=== PATIENT | female | born 1955 | race Two or more races ===

== ENCOUNTER 2024-01-03 12:14 | Emergency (ER) | payer MEDICAID, OTHER ==
[~2024-01-03] VITALS: Ht 162.6 cm; Wt 70.0 kg
[2024-01-03 12:39] VITALS: PULSE 60; RESP 16; O2SAT 100
[2024-01-03] MEDS: ETOMIDATE (2MG/ML) 20ML VIAL IV ONE ×2 (12:52→12:54)
[2024-01-03] MEDS: ROCURONIUM 10MG/ML 10ML VIAL IV ONE ×2 (12:52→12:54)
[2024-01-03] MEDS: NALOXONE HCL 1MG/ML 2ML SYRINGE IV ONE (12:53)
[2024-01-03] MEDS: MIDAZOLAM DRIP 50 mg/50mL 50 ML IV ONE (12:53)
[2024-01-03] MEDS: NALOXONE HCL 1MG/ML 2ML SYRINGE ONE (12:53)
[2024-01-03] MEDS: MIDAZOLAM DRIP 50 mg/50mL 50 ML IV SCH (13:00)
[2024-01-03 14:14] LABS: Basophils # (auto) 0.1 10 ^3/uL (0-0.2); Basophils % (auto) 0.5 % (0.0-2.0); Eosinophils # (auto) 0 10 ^3/uL (0-0.8); Eosinophils % (auto) 0.3 % (0.0-7.0); Hematocrit 41.6 % (36.0-46.0); Hemoglobin 13.7 g/dL (12.2-16.2); Lymphocytes # (auto) 1.8 10 ^3/uL (0.4-5.4); Lymphocytes % (auto) 14.4 % (10.0-50.0); Mean Corpuscular Hemoglobin 29.3 pg (28.0-32.0); Mean Corpuscular Hgb Conc. 33.1 g/dL (32.0-36.0); Mean Corpuscular Volume 88.5 fL (80.0-100.0); Monocytes # (auto) 0.6 10 ^3/uL (0-1.3); Monocytes % (auto) 4.6 % (0.0-12.0); Neutrophils # (auto) 9.9 10 ^3/uL (1.6-8.6); Neutrophils % (auto) 80.2 % (37.0-80.0); Nucleated Red Blood Cells % 0.1 %; Red Cell Distribution Width 12.7 % (11.8-14.3); White Blood Cell 12.3 10^3/uL (4.4-10.8)
[2024-01-03] MEDS: SODIUM CHLORIDE 0.9% 1,000 ML IV ONE (14:17)
[2024-01-03 14:31] LABS: Alanine Aminotransferase 27 U/L (7-40); Albumin 4.4 g/dL (3.2-4.8); Alkaline Phosphatase 110 U/L (46-116); Anion Gap 10 (5-15); Aspartate Aminotransferase 25 U/L (13-40); Blood Urea Nitrogen 6 mg/dL (9-23); Calcium 9.3 mg/dL (8.5-10.1); Carbon Dioxide 27 mmol/L (20-30); Chloride 100 mmol/L (98-107); Glucose 130 mg/dL (74-106); Potassium 3.7 mmol/L (3.5-5.1); Sodium 137 mmol/L (136-145)
[2024-01-03 14:32] LABS: Bilirubin, Total 0.5 mg/dL (0.2-1.0); Total Protein 7.1 g/dL (5.7-8.2)
[2024-01-03 14:43] LABS: Base Excess 0.6 mmol/L (-2.0-2.0)
[2024-01-03 16:07] LABS: Urine Bacteria None Seen /hpf (None Seen)
[2024-01-03 16:36] LABS: Urine Blood Negative /uL (Negative); Urine Clarity Clear (Clear); Urine Color Colorless (Yellow); Urine Mucus FEW (None Seen); Urine Protein, UAD 1+ (Negative); Urine Specific Gravity 1.007 (1.001-1.035); Urine Urobilinogen Normal (Negative); Urine WBC 2 /hpf (0 - 5)
[2024-01-03] MEDS: levETIRAcetam 1000 mg/100ml 100 ML IV ONE (16:49)
[2024-01-03 18:00] VITALS: BP 119/63; PULSE 68; RESP 14; TEMP 99.9; O2SAT 99
== END 2024-01-03 17:55 | disposition short-term general hospital (02) ==
LOC: EDBD 12:14 → ER 12:14
DX: I63.9 Cerebral infarction, unspecified (principal); I62.9 Nontraumatic intracranial hemorrhage, unspecified; G93.41 Metabolic encephalopathy
CPT/HCPCS: 31500; 36415; 36556; 36600; 70450; 71045; 80053; 81001; 82805; 83605; 83880; 84484; 85025; 87040; 87070; 87077; 87186; 87205; 93005; 96361; 96365; 96368; 96375; 99291; J1953; J2250; J2310; J7030; 94002